=== PATIENT | female | born 1995 | race Caucasian/White ===

== ENCOUNTER 2017-09-12 20:43 | Emergency (ER) | payer MEDICAID ==
[2017-09-12 22:21] LABS: INFLUENZA A PATIENT NEGATIVE (NEGATIVE); INFLUENZA B PATIENT NEGATIVE (NEGATIVE); OBC FLU VALID
[2017-09-13 06:43] LABS: NEGATIVE OBC STREP NEG; POSITIVE OBC STREP POS
== END 2017-09-12 22:48 | disposition home or self-care (01) ==
LOC: ER 20:43
DX: J02.8 Acute pharyngitis due to other specified organisms (principal); H92.03 Otalgia, bilateral
CPT/HCPCS: 87070; 87804; 87804-59; 87880; 99284

== ENCOUNTER 2017-10-27 13:26 | Emergency (ER) | payer MEDICAID | END 2017-10-27 15:24 | disposition home or self-care (01) | LOC: ER 15:24 | DX: G56.02 Carpal tunnel syndrome, left upper limb (principal) | CPT/HCPCS: 99283 ==

== ENCOUNTER 2017-12-19 11:08 | Emergency (ER) | payer MEDICAID | END 2017-12-19 12:45 | disposition home or self-care (01) | LOC: ER 11:08 | DX: H66.92 Otitis media, unspecified, left ear (principal) | CPT/HCPCS: 99283 ==

== ENCOUNTER 2018-04-10 08:47 | Emergency (ER) | payer MEDICAID ==
[~2018-04-10] VITALS: Ht 160 cm; Wt 80.7 kg
[~2018-04-10 08:47] MED LIST: AMOX1TAB61 PO; METH4TAB2 PO; NAPR-514 PO
[2018-04-10] MEDS ORDERED: LIDO:MAALOX 1:1 20 ML SINGLE DOSE. PO ONE (09:15)
[2018-04-10 09:24] LABS: BASO % 0 % (0-3); EOS # 0.1 x10^3/uL (0.0-0.7); EOS % 2 % (0-3); HEMATOCRIT 37.4 % (36.0-47.0); HEMOGLOBIN 12.9 g/dL (12.0-15.5); LYMPH # 2.4 x10^3/uL (1.0-4.8); LYMPH % 38 % (24-48); MEAN CORPUSCULAR HEMOGLOBIN 31 pg (25-35); MEAN CORPUSCULAR HGB CONC 34 g/dL (31-37); MEAN CORPUSCULAR VOLUME 89 fL (79-100); MONO # 0.5 x10^3/uL (0.0-1.1); MONO % 7 % (0-9); NEUT # 3.3 x10^3uL (1.8-7.7); NEUT % 52 % (31-73); PLATELET COUNT 204 x10^3/uL (140-400); RED CELL DISTRIBUTION WIDTH 14.2 % (11.5-14.5); WHITE BLOOD COUNT 6.2 x10^3/uL (4.0-11.0)
--- NOTE | 2018-04-10 09:41 | PHYS DOC ---
Past Medical History Past Medical History: No Pertinent History Past Surgical History: Appendectomy Alcohol Use: None Drug Use: None Adult General Chief Complaint Chief Complaint: ABDOMINAL PAIN HPI HPI Patient is a 22 year old female who presents to the emergency room with complaints of left upper quadrant abdominal pain for the last 2 weeks. In addition, she reports nausea, increased heartburn, and increased flatulence. The pain increases after she eats something and is typically worse when she first wakes up in the morning. Patient also states that standing increases the pain as well as taking a deep breath. Currently, she reports her pain as a 7 out of 10 on the pain scale. She is taking ibuprofen for relief of her symptoms and states that that has helped but only for short time. She denies any medical history. She states her only surgical history is an appendectomy. She denies smoking, alcohol, or drug use. Her last menstrual period was on March 272017, she denies any chance of . She denies any vomiting, chest pain, fever, decreased appetite, shortness of breath, or diarrhea. Review of Systems Review of Systems Constitutional: Denies fever or chills [] HENT: Denies nasal congestion or sore throat [] Respiratory: Denies cough or shortness of breath [] Cardiovascular: Denies chest pain GI: Denies vomiting or diarrhea; reports left upper abdominal pain, epigastric pain, heart burn, and increased flatulence Musculoskeletal: Denies back pain Integument: Denies rash or skin lesions [] Neurologic: Denies headache, focal weakness or sensory changes [] All other systems were reviewed and found to be within normal limits, except as documented in this note. Current Medications Current Medications Current Medications Medications (Trade) Dose Ordered Sig/[facility] Start Time Stop Time Status Last Admin Dose Admin Acetaminophen (Tylenol) 1,000 mg 1X ONCE 04/10/18 10:15 04/10/18 10:16 DC 04/10/18 10:26 1,000 MG Multi-Ingredient Mouthwash/Gargle (Gi Cocktail) 20 ml 1X ONCE 04/10/18 09:15 04/10/18 09:16 DC 04/10/18 09:20 20 ML Allergies Allergies Allergies Coded Allergies Type Severity Reaction Last Updated Verified No Known Drug Allergies 09/12/17 No Physical Exam Physical Exam Constitutional: Well developed, well nourished, no acute distress, non-toxic appearance. [] HENT: Normocephalic, atraumatic, bilateral external ears normal, oropharynx moist, no oral exudates, nose normal. [] Eyes: PERRLA, conjunctiva normal, no discharge. [] Neck: Normal range of motion, no tenderness, supple, no stridor. [] Cardiovascular:Heart rate regular rhythm, no murmur [] Lungs & Thorax: Bilateral breath sounds clear to auscultation [] Abdomen: Bowel sounds normal, soft, no masses, no pulsatile masses; LUQ and epigastric tenderness to palpation Skin: Warm, dry, no erythema, no rash. [] Extremities: No cyanosis, ROM intact, no edema. [] Neurologic: Alert and oriented X 3, normal motor function, normal sensory function, no focal deficits noted. [] Psychologic: Affect normal, judgement normal, mood normal. [] Current Patient Data Vital Signs Vital Signs Date Time Temp Pulse Resp B/P (MAP) Pulse Ox O2 Delivery O2 Flow Rate FiO2 04/10/18 09:06 98.3 98 18 121/80 (94) 100 Room Air 98.3 Lab Values Laboratory Tests Test 04/10/18 09:00 04/10/18 09:06 04/10/18 09:11 Urine Collection Type Void Urine Color Yellow Urine Clarity Clear Urine pH 7.0 Urine Specific [place] 1.020 Urine Protein Negative mg/dL (NEG-TRACE) Urine Glucose (UA) Negative mg/dL (NEG) Urine Ketones (Stick) Negative mg/dL (NEG) Urine Blood Negative (NEG) Urine Nitrite Negative (NEG) Urine Bilirubin Negative (NEG) Urine Urobilinogen Dipstick 0.2 mg/dL (0.2 mg/dL) Urine Leukocyte Esterase Moderate (NEG) Urine RBC Occ /HPF (0-2) Urine WBC 11-20 /HPF (0-4) Urine Squamous Epithelial Cells Mod /LPF Urine Amorphous Sediment Present /HPF Urine Bacteria Moderate /HPF (0-FEW) POC Urine HCG, Qualitative Hcg negative (Negative) White Blood Count 6.2 x10^3/uL (4.0-11.0) Red Blood Count 4.20 x10^6/uL (3.50-5.40) Hemoglobin 12.9 g/dL (12.0-15.5) Hematocrit 37.4 % (36.0-47.0) Mean Corpuscular Volume 89 fL (79-100) Mean Corpuscular Hemoglobin 31 pg (25-35) Mean Corpuscular Hemoglobin Concent 34 g/dL (31-37) Red Cell Distribution Width 14.2 % (11.5-14.5) Platelet Count 204 x10^3/uL (140-400) Neutrophils (%) (Auto) 52 % (31-73) Lymphocytes (%) (Auto) 38 % (24-48) Monocytes (%) (Auto) 7 % (0-9) Eosinophils (%) (Auto) 2 % (0-3) Basophils (%) (Auto) 0 % (0-3) Neutrophils # (Auto) 3.3 x10^3uL (1.8-7.7) Lymphocytes # (Auto) 2.4 x10^3/uL (1.0-4.8) Monocytes # (Auto) 0.5 x10^3/uL (0.0-1.1) Eosinophils # (Auto) 0.1 x10^3/uL (0.0-0.7) Basophils # (Auto) 0.0 x10^3/uL (0.0-0.2) Sodium Level 139 mmol/L (136-145) Potassium Level 3.8 mmol/L (3.5-5.1) Chloride Level 105 mmol/L (98-107) Carbon Dioxide Level 28 mmol/L (21-32) Anion Gap 6 (6-14) Blood Urea Nitrogen 15 mg/dL (7-20) Creatinine 0.7 mg/dL (0.6-1.0) Estimated GFR (Cockcroft-Gault) 106.7 BUN/Creatinine Ratio 21 (6-20) H Glucose Level 96 mg/dL (70-99) Calcium Level 8.8 mg/dL (8.5-10.1) Total Bilirubin 0.2 mg/dL (0.2-1.0) Aspartate Amino Transferase (AST) 11 U/L (15-37) L Alanine Aminotransferase (ALT) 14 U/L (14-59) Alkaline Phosphatase 119 U/L (46-116) H Total Protein 7.3 g/dL (6.4-8.2) Albumin 3.8 g/dL (3.4-5.0) Albumin/Globulin Ratio 1.1 (1.0-1.7) Lipase 122 U/L (73-393) Laboratory Tests 04/10/18 09:11 Laboratory Tests 04/10/18 09:11 EKG EKG [] Course & Med Decision Making Course & Med Decision Making Pertinent Labs and Imaging studies reviewed. (See chart for details) Dx: UTI, gerd DDX: gastritis, pancreatitis, pneumonia, UTI, GERD Prescribed Bactrim, and Ranitidine. Encouraged bland diet. Patient verbalized an understanding of home care, medications, follow-up, and return to ED instructions and was in agreement with the plan of care. [] Dragon Disclaimer Dragon Disclaimer This electronic medical record was generated, in whole or in part, using a voice recognition dictation system. Departure Departure Impression: Primary Impression: Gastroesophageal reflux disease Additional Impression: Urinary tract infection Disposition: HOME, SELF-CARE Condition: STABLE Referrals: NO PCP (PCP) Patient Instructions: Gastroesophageal Reflux Disease, Adult, [id number], Urinary Tract Infection, [id number] Additional Instructions: Fill the prescriptions and use as directed. Recommend bland diet and increased clear fluids. Follow-up with her primary care doctor in the next 1-2 days. Return to the emergency room if her symptoms worsen. Scripts Sulfamethoxazole/Trimethoprim (BACTRIM DS TABLET) 1 Each Tablet 1 TAB PO BID for 5 Days, #10 TAB 0 Refills Prov: CORBY PAVON APRN 04/10/18 Ranitidine Hcl (RANITIDINE HCL) 150 Mg Tablet 150 MG PO BID for 10 Days, #20 TAB 0 Refills Prov: CORBY PAVON APRN 04/10/18 Problem Qualifiers Primary Impression: Gastroesophageal reflux disease Esophagitis presence: esophagitis presence not specified Qualified Codes: K21.9 - Gastro-esophageal reflux disease without esophagitis Additional Impression: Urinary tract infection Urinary tract infection type: site unspecified Hematuria presence: without hematuria Qualified Codes: N39.0 - Urinary tract infection, site not specified CORBY PAVON APRN Apr 10, 2018 09:41
[2018-04-10 09:49] LABS: ALBUMIN 3.8 g/dL (3.4-5.0); ALBUMIN/GLOBULIN RATIO 1.1 (1.0-1.7); CALCIUM 8.8 mg/dL (8.5-10.1); CREATININE 0.7 mg/dL (0.6-1.0); GFR 106.7; POTASSIUM 3.8 mmol/L (3.5-5.1); TOTAL BILIRUBIN 0.2 mg/dL (0.2-1.0); TOTAL PROTEIN 7.3 g/dL (6.4-8.2)
[2018-04-10] MEDS ORDERED: ACETAMINOPHEN 500 MG TABLET PO ONE (10:15)
--- NOTE | 2018-04-10 10:39 | RAD ---
Chest radiograph 04/10/2018 10:09 AM INDICATION: Intermittent left upper quadrant pain for 2 weeks. COMPARISON: None available TECHNIQUE: Frontal and lateral views of the chest are provided. FINDINGS: The cardiomediastinal silhouette is within normal limits. There are no pleural effusions. There is no pulmonary vascular congestion. There is no pneumothorax. The lungs are clear. No significant osseous abnormality is identified. IMPRESSION: No acute cardiopulmonary process. Electronically signed by: Marie Lobo MD (04/10/2018 10:36 AM) [id number]
[2018-04-10 10:58] LABS: BILIRUBIN,URINE NEGATIVE (NEG); CLARITY,URINE CLEAR; COLOR,URINE YELLOW; NITRITE,URINE NEGATIVE (NEG); PROTEIN,URINE NEGATIVE (NEG-TRACE); UROBILINOGEN,URINE 0.2 mg/dL (0.2 mg/dL)
[2018-04-10 11:17] LABS: RBC,URINE OCC /HPF (0-2)
[2018-04-10 11:18] LABS: AMORPHOUS SEDIMENT,UR PRESENT /HPF; BACTERIA,URINE MODERATE /HPF (0-FEW); SQUAMOUS EPITHELIAL CELL,UR MOD /LPF
[2018-04-10] MEDS ORDERED: SULF1TAB24 PO ×2 (11:31→11:33)
[2018-04-10] MEDS ORDERED: RANI150T2 PO (11:31)
[2018-04-10 11:55] VITALS: BP 103/64
== END 2018-04-10 11:55 | disposition home or self-care (01) ==
LOC: ER 08:47
DX: K21.9 Gastro-esophageal reflux disease without esophagitis (principal); N39.0 Urinary tract infection, site not specified; Z90.89 Acquired absence of other organs
CPT/HCPCS: 36415; 71046; 80053; 81001; 81025; 83690; 85025; 87086; 99285-25

== ENCOUNTER 2018-09-17 06:05 | Emergency (ER) | payer MEDICAID, OTHER ==
[~2018-09-17] VITALS: Ht 162.6 cm; Wt 72.6 kg
[~2018-09-17 06:05] MED LIST changes: +RANI150T2 PO; +SULF1TAB24 PO
[2018-09-17 06:23] LABS: BILIRUBIN,URINE NEGATIVE (NEG); CLARITY,URINE CLEAR; COLOR,URINE YELLOW; NITRITE,URINE NEGATIVE (NEG); PROTEIN,URINE NEGATIVE (NEG-TRACE); UROBILINOGEN,URINE 0.2 mg/dL (0.2 mg/dL)
--- NOTE | 2018-09-17 06:30 | PHYS DOC ---
Past Medical History Past Medical History: No Pertinent History Past Surgical History: Appendectomy Alcohol Use: None Drug Use: None Adult General Chief Complaint Chief Complaint: VAGINAL BLEEDING HPI HPI Patient is a 23 year old female who presents with pelvic pain, vaginal bleeding , and . Patient first had a home test that was positive on August 11, 2018. Patient reports that her last menstrual period was in April but she has a history of irregular menses. She is been evaluated by [facility] and reports that her quantitative level was low so she had an ultrasound performed 3 days ago that she reports showed an empty sac. Patient is uncertain as to what her hormone levels are. She reports that she is O+ for her blood type. This is her first . She reports severe lower abdominal/ pelvic pain and bleeding that is heavier than a period. She denies any trauma. Denies any nausea, vomiting, or diarrhea. She denies any easy bruising. [] Review of Systems Review of Systems Constitutional: Denies fever or chills [] Eyes: Denies change in visual acuity, redness, or eye pain [] HENT: Denies nasal congestion or sore throat [] Respiratory: Denies cough or shortness of breath [] Cardiovascular: No chest pain or palpitations[] GI: Denies abdominal pain, nausea, vomiting, bloody stools or diarrhea [] : Denies dysuria or hematuria [] Musculoskeletal: Denies back pain or joint pain [] Integument: Denies rash or skin lesions [] Neurologic: Denies headache, focal weakness or sensory changes [] Endocrine: Denies polyuria or polydipsia [] All other systems were reviewed and found to be within normal limits, except as documented in this note. Current Medications Current Medications Current Medications Medications (Trade) Dose Ordered Sig/[facility] Start Time Stop Time Status Last Admin Dose Admin Sodium Chloride 500 ml @ 500 mls/hr Q1H 09/17/18 07:00 09/17/18 07:00 DC 09/17/18 06:41 500 MLS/HR Allergies Allergies Allergies Coded Allergies Type Severity Reaction Last Updated Verified No Known Drug Allergies 09/12/17 No Physical Exam Physical Exam Constitutional: Well developed, well nourished, no acute distress, non-toxic appearance. [] HENT: Normocephalic, atraumatic, bilateral external ears normal, oropharynx moist, no oral exudates, nose normal. [] Eyes: PERRLA, EOMI, conjunctiva normal, no discharge. [] Neck: Normal range of motion, no tenderness, supple, no stridor. [] Cardiovascular:Heart rate regular rhythm, no murmur [] Lungs & Thorax: Bilateral breath sounds clear to auscultation [] Abdomen: Bowel sounds normal, soft, no tenderness, no masses, no pulsatile masses. Pelvic exam performed with cell tender helper: External genitalia: normal, vaginal vault : A small amount of dark blood in the vault, no lesions noted. Cervix: nulliparous os, no cervical motion tenderness, small amount of blood from the cervix[] Skin: Warm, dry, no erythema, no rash. [] Back: No tenderness, no CVA tenderness. [] Extremities: No tenderness, no cyanosis, no clubbing, ROM intact, no edema. [] Neurologic: Alert and oriented X 3, normal motor function, normal sensory function, no focal deficits noted. [] Psychologic: Affect normal, judgement normal, mood normal. [] Current Patient Data Vital Signs Vital Signs Date Time Temp Pulse Resp B/P (MAP) Pulse Ox O2 Delivery O2 Flow Rate FiO2 09/17/18 06:14 98.6 98 16 120/72 (88) 98 Room Air 98.6 Lab Values Laboratory Tests Test 09/17/18 06:10 09/17/18 06:16 09/17/18 06:35 09/17/18 07:25 Urine Collection Type Unknown Urine Color Yellow Urine Clarity Clear Urine pH 6.0 Urine Specific [place] 1.010 Urine Protein Negative mg/dL (NEG-TRACE) Urine Glucose (UA) Negative mg/dL (NEG) Urine Ketones (Stick) Negative mg/dL (NEG) Urine Blood Large (NEG) Urine Nitrite Negative (NEG) Urine Bilirubin Negative (NEG) Urine Urobilinogen Dipstick 0.2 mg/dL (0.2 mg/dL) Urine Leukocyte Esterase Negative (NEG) Urine RBC 20-40 /HPF (0-2) Urine WBC Occ /HPF (0-4) Urine Squamous Epithelial Cells Many /LPF Urine Bacteria Few /HPF (0-FEW) Urine Mucus Slight /LPF POC Urine HCG, Qualitative Hcg positive (Negative) White Blood Count 8.5 x10^3/uL (4.0-11.0) Red Blood Count 4.45 x10^6/uL (3.50-5.40) Hemoglobin 12.9 g/dL (12.0-15.5) Hematocrit 39.0 % (36.0-47.0) Mean Corpuscular Volume 88 fL (79-100) Mean Corpuscular Hemoglobin 29 pg (25-35) Mean Corpuscular Hemoglobin Concent 33 g/dL (31-37) Red Cell Distribution Width 14.3 % (11.5-14.5) Platelet Count 202 x10^3/uL (140-400) Neutrophils (%) (Auto) 69 % (31-73) Lymphocytes (%) (Auto) 23 % (24-48) L Monocytes (%) (Auto) 6 % (0-9) Eosinophils (%) (Auto) 2 % (0-3) Basophils (%) (Auto) 0 % (0-3) Neutrophils # (Auto) 5.8 x10^3uL (1.8-7.7) Lymphocytes # (Auto) 2.0 x10^3/uL (1.0-4.8) Monocytes # (Auto) 0.5 x10^3/uL (0.0-1.1) Eosinophils # (Auto) 0.2 x10^3/uL (0.0-0.7) Basophils # (Auto) 0.0 x10^3/uL (0.0-0.2) Sodium Level 137 mmol/L (136-145) Potassium Level 3.6 mmol/L (3.5-5.1) Chloride Level 101 mmol/L (98-107) Carbon Dioxide Level 25 mmol/L (21-32) Anion Gap 11 (6-14) Blood Urea Nitrogen 10 mg/dL (7-20) Creatinine 0.6 mg/dL (0.6-1.0) Estimated GFR (Cockcroft-Gault) 126.2 BUN/Creatinine Ratio 17 (6-20) Glucose Level 99 mg/dL (70-99) Calcium Level 9.5 mg/dL (8.5-10.1) Total Bilirubin 0.3 mg/dL (0.2-1.0) Aspartate Amino Transferase (AST) 10 U/L (15-37) L Alanine Aminotransferase (ALT) 10 U/L (14-59) L Alkaline Phosphatase 90 U/L (46-116) Total Protein 7.4 g/dL (6.4-8.2) Albumin 3.9 g/dL (3.4-5.0) Albumin/Globulin Ratio 1.1 (1.0-1.7) Maternal Serum HCG Beta Subunit 8521 mIU/mL (0-5) H Laboratory Tests 09/17/18 06:35 Laboratory Tests 09/17/18 06:35 Microbiology 09/17/18 Wet Prep - Final, Complete EKG EKG [] Radiology/Procedures Radiology/Procedures PROCEDURE: OB <14 WKS W/TV Obstetrical ultrasound, 09/17/2018: HISTORY: Pelvic pain, Transabdominal and transvaginal scans were obtained. No intrauterine gestational sac is seen. The central uterine echo complex measures 9 mm in AP dimension. The ovaries are of normal size. No adnexal mass is evident. No free fluid is detected in the pelvis. IMPRESSION: No intrauterine or extrauterine is identified. Diagnostic considerations include an early intrauterine , spontaneous or occult ectopic . Correlation with serial hCG titers and possibly sonographic follow-up is suggested. Electronically signed by: Tone Chowdayr MD (09/17/2018 7:43 AM) [facility][] Course & Med Decision Making Course & Med Decision Making Pertinent Labs and Imaging studies reviewed. (See chart for details) ED course: Patient arrived, was placed in bed, in tolerated exam well. Pelvic exam was performed with cell tender helper. Patient had pelvic ultrasound performed without any complications. After the return of the laboratory and imaging findings, these were discussed with the patient who voiced understanding. All questions were answered. Patient was discharged in improved condition. Medical decision making: There is no evidence of an ectopic . No evidence of Rh mismatch. No evidence of placenta previa or abruption. No evidence of significant anemia.[] Dragon Disclaimer Dragon Disclaimer This electronic medical record was generated, in whole or in part, using a voice recognition dictation system. Departure Departure Impression: Primary Impression: Threatened miscarriage Disposition: 01 HOME, SELF-CARE Condition: IMPROVED Referrals: NO PCP (PCP) Patient Instructions: Threatened Miscarriage Additional Instructions: Call your [facility] office today to be seen within 2 days. Your quantitative hCG was 8521 today. This level should double every 48-72 hours in a normal . This number needs to be followed by your [facility] to ensure its going up or to be followed as it goes to 0. Do not put anything in your vagina, no tampons, no douching, no sexual intercourse until cleared by your [facility]. Return to the ER if worsening pain, bleeding, you develop a fever of more than 101�, or any other concerns Scripts Acetaminophen With Codeine (TYLENOL WITH CODEINE #3 TABLET) 1 Each Tablet 1 TAB PO PRN Q4HRS PRN for PAIN, #20 TAB Prov: PATRIZIA LINDO DO 09/17/18 PATRIZIA LINDO DO Sep 17, 2018 06:30
[2018-09-17 06:33] LABS: SQUAMOUS EPITHELIAL CELL,UR MANY /LPF
[2018-09-17 06:34] LABS: RBC,URINE 20-40 /HPF (0-2)
[2018-09-17 06:35] LABS: BACTERIA,URINE FEW /HPF (0-FEW); WBC,URINE OCC /HPF (0-4)
[2018-09-17 06:47] LABS: BASO % 0 % (0-3); EOS # 0.2 x10^3/uL (0.0-0.7); EOS % 2 % (0-3); HEMOGLOBIN 12.9 g/dL (12.0-15.5); LYMPH % 23 % (24-48); MEAN CORPUSCULAR HEMOGLOBIN 29 pg (25-35); MEAN CORPUSCULAR HGB CONC 33 g/dL (31-37); MEAN CORPUSCULAR VOLUME 88 fL (79-100); MONO # 0.5 x10^3/uL (0.0-1.1); MONO % 6 % (0-9); NEUT # 5.8 x10^3uL (1.8-7.7); NEUT % 69 % (31-73); PLATELET COUNT 202 x10^3/uL (140-400); RED BLOOD COUNT 4.45 x10^6/uL (3.50-5.40); RED CELL DISTRIBUTION WIDTH 14.3 % (11.5-14.5); WHITE BLOOD COUNT 8.5 x10^3/uL (4.0-11.0)
[2018-09-17 06:52] LABS: CALCIUM 9.5 mg/dL (8.5-10.1); CREATININE 0.6 mg/dL (0.6-1.0); GFR 126.2; POTASSIUM 3.6 mmol/L (3.5-5.1)
[2018-09-17 06:57] LABS: ALBUMIN 3.9 g/dL (3.4-5.0); ALBUMIN/GLOBULIN RATIO 1.1 (1.0-1.7); TOTAL BILIRUBIN 0.3 mg/dL (0.2-1.0); TOTAL PROTEIN 7.4 g/dL (6.4-8.2)
[2018-09-17] MEDS ORDERED: IV NORMAL SALINE 500ML BAG 500 ML IV SCH (07:00)
--- NOTE | 2018-09-17 07:46 | RAD ---
Obstetrical ultrasound, 09/17/2018: HISTORY: Pelvic pain, Transabdominal and transvaginal scans were obtained. No intrauterine gestational sac is seen. The central uterine echo complex measures 9 mm in AP dimension. The ovaries are of normal size. No adnexal mass is evident. No free fluid is detected in the pelvis. IMPRESSION: No intrauterine or extrauterine is identified. Diagnostic considerations include an early intrauterine , spontaneous or occult ectopic . Correlation with serial hCG titers and possibly sonographic follow-up is suggested. Electronically signed by: Tone Chowdary MD (09/17/2018 7:43 AM) [facility]
[2018-09-17] MEDS ORDERED: ACET-704 PO (08:29)
[2018-09-17 09:00] VITALS: BP 110/70
[2018-09-18 13:21] LABS: GC PROBE Negative (Negative)
== END 2018-09-17 09:11 | disposition home or self-care (01) ==
LOC: ER 06:05
DX: O20.0 Threatened abortion (principal); Z3A.01 Less than 8 weeks gestation of pregnancy
CPT/HCPCS: 36415; 76801; 76817; 80053; 81001; 81025; 84702; 85025; 86900; 86901; 87491; 87591; 99284; J7040; Q0111

== ENCOUNTER 2021-08-28 10:38 | Emergency (ER) | payer SELFPAY ==
[~2021-08-28] VITALS: Ht 162.6 cm; Wt 81.9 kg
[~2021-08-28 10:38] MED LIST changes: +ACET-704 PO
[2021-08-28 10:48] VITALS: BP 118/71
--- NOTE | 2021-08-28 11:58 | PHYS DOC ---
Past Medical History Past Medical History: No Pertinent History Past Surgical History: Appendectomy Smoking Status: Never Smoker Alcohol Use: None Drug Use: None General Adult EDM: Chief Complaint: EARACHE/EAR PAIN HPI: HPI: Patient is a 26 year old female who presents with bilateral ear pain and sore throat. Patient reports she had Covid a couple of weeks ago. She states she followed all quarantine instruction and remained off work. This past week, she states she has felt unwell, so she took more time off work. She saw her primary care doctor on Monday regarding her sore throat and swollen tonsils. At that time, they did a rapid strep test and took a throat culture. She states the strep test was negative and she has not heard back on the throat culture results. She presents today with persistent pain. She states it feels like she is "being stabbed in the ears." Patient denies fever, chills, general weakness, nasal congestion, cough, shortness of breath, difficulty swallowing. Review of Systems: Review of Systems: Constitutional: Denies fever, chills or generalized weakness Eyes: Denies change in visual acuity, visual field deficits or discharge HENT: See HPI Respiratory: Denies cough or shortness of breath Cardiovascular: Denies chest pain, palpitations or edema GI: Denies abdominal pain, nausea, vomiting, bloody stools or diarrhea : Denies dysuria or hematuria Musculoskeletal: Denies back pain or joint pain Integument: Denies rash or other skin lesion Neurologic: Denies headache, focal weakness or sensory changes Heart Score: C/O Chest Pain: No Current Medications: Current Medications Medications (Trade) Dose Ordered Sig/[facility] Start Time Stop Time Status Last Admin Dose Admin Ibuprofen (Motrin) 800 mg 1X ONCE 08/28/21 12:00 08/28/21 12:01 Throat Lozenges (Cepacol Sore Throat Lozenge) 1 jose miguel 1X PRN 08/28/21 12:00 08/28/21 18:00 Allergies: Allergies: Allergies Coded Allergies Type Severity Reaction Last Updated Verified No Known Drug Allergies 09/12/17 No Physical Exam: PE: Constitutional: Well developed, well nourished, no acute distress, non-toxic appearance. HENT: Normocephalic, atraumatic, bilateral external ears without deformity or discharge, bilateral ear canals without erythema/swelling, bilateral tympanic membranes pearly shelby without erythema or bulging, oropharynx moist, tonsils 3+ bilaterally with white exudate, nose without deformity or discharge. Eyes: EOMI, conjunctiva normal, no discharge. Neck: Normal range of motion, tonsillar and anterior cervical lymphadenopathy with overlying tenderness, no stridor. Skin: Warm, dry, no erythema, no rash. Extremities: No cyanosis, no clubbing, ROM intact, no edema. Neurologic: Alert and oriented x4, steady and symmetric upright gait, no focal deficits noted. Current Patient Data: Labs: Laboratory Tests Test 08/28/21 10:56 Group A Streptococcus Rapid Negative (NEGATIVE) Vital Signs: Vital Signs Date Time Temp Pulse Resp B/P (MAP) Pulse Ox O2 Delivery O2 Flow Rate FiO2 08/28/21 10:48 98.1 111 18 118/71 (87) 98 Room Air 98.1 Course & Med Decision Making: Course & Med Decision Making Pertinent Labs and Imaging studies reviewed. (See chart for details) Patient is a 26-year-old female previously diagnosed with Covid who presents with bilateral tonsil swelling and bilateral ear pain. Patient has already tested strep negative, but does not have throat culture results from her primary care doctor. She presents today for persistent discomfort. I will repeat rapid strep test and throat culture. Otherwise, patient was provided with supportive treatment measures. Advised that she follow-up with her primary care doctor regarding throat culture, and that we would contact her regarding our results as well. It is more likely that her primary care doctor will have results sooner. Patient was given return precautions, and she understands and is agreeable to discharge plan. Jackie Disclaimer: Jackie Disclaimer: This electronic medical record was generated, in whole or in part, using a voice recognition dictation system. Departure Departure Impression: Primary Impression: Acute tonsillitis due to other specified organisms Disposition: HOME / SELF CARE / HOMELESS Condition: STABLE Referrals: NO PCP (PCP) CLINTON COTTO MD Patient Instructions: Tonsillitis, [id number] Additional Instructions: EMERGENCY DEPARTMENT GENERAL DISCHARGE INSTRUCTIONS Thank you for coming to [facility] Emergency Department (ED) today and trusting us with you care. We trust that you had a positive experience in our Emergency Department. If you wish to speak to the department management, you may call the director at . YOUR FOLLOW UP INSTRUCTIONS ARE FOLLOWS: 1. Follow up with your primary care doctor. If you do not have a primary doctor, please ask for a resource list of physicians or clinics that may be able to assist you with follow up care. 2. The emergency provider has interpreted your imaging studies, if any were ordered. The radiology calibration specialist also reviewed them. If there is a change in the findings, you will be notified in 48 hours when at all possible. 3. If a lab test or culture has been done, your results will be reviewed and you will be notified if you need a change in treatment. 4. Follow instructions verbalized to you and refer to the printouts if needed. - Follow up with your primary care doctor regarding your throat culture. We will call you with our results as well. If your primary doctor prescribes antibiotics, take them as directed. - Use throat lozenges with benzocaine (example Cepacol) for throat discomfort - Drink fluids that provide comfort, whether they be hot (tea, lemon water) or cold (slushies). Whatever provides the most relief is what you should drink. ADDITIONAL INSTRUCTIONS AND INFORMATION: 1. Your care today has been supervised by a physician who is specially trained in emergency care. Many problems require more than one evaluation for a complete diagnosis and treatment. We recommend that you schedule your follow up appointment as recommended to ensure complete treatment of you illness or injury. If you are unable to obtain follow up care and continue to have a problem, or if your condition worsens, we recommend that you return to the ED. 2. We are not able to safely determine your condition over the phone nor are we able to give sound medical advice over the phone. For these safety reasons, if you call for medical advice we will ask you to come to the ED for further ev aluation. 3. If you have any questions regarding these discharge instructions please call the ED at . SAFETY INFORMATION: In the interest of safety, wellness, and injury prevention; we encourage you to wear your seat belt, if you smoke; quite smoking, and we encourage family to use a protective helmet for bicycling and other sporting events that present an increased risk for head injury. IF YOUR SYMPTOMS WORSEN OR NEW SYMPTOMS DEVELOP, OR YOU HAVE CONCERNS ABOUT YOUR CONDITION; OR IF YOUR CONDITION WORSENS WHILE YOU ARE WAITING FOR YOUR FOLLOW UP APPOINTMENT; EITHER CONTACT YOUR PRIMARY CARE DOCTOR, THE PHYSICIAN WHOSE NAME AND NUMBER YOU WERE GIVEN, OR RETURN TO THE ED IMMEDIATELY. [id number] REIS Aug 28, 2021 11:58
[2021-08-28] MEDS ORDERED: IBUPROFEN 400 MG TABLET. PO ONE (12:00)
[2021-08-28] MEDS ORDERED: BENZOCAINE/MENTHOL LOZENGE. PO PRN (12:00)
== END 2021-08-28 12:18 | disposition home or self-care (01) ==
LOC: ER 10:38
DX: J03.80 Acute tonsillitis due to other specified organisms (principal)
CPT/HCPCS: 87070; 87880; 99283